=== PATIENT | male | born 1940 | race African-American/Black ===

== ENCOUNTER 2016-12-20 02:33 | Inpatient (IN) | payer OTHER ==
[2016-12-20] VITALS (8 sets, daily range): BP systolic 126–179
[~2016-12-20] VITALS: Ht 172.7 cm; Wt 82.6 kg
[2016-12-20] MEDS ORDERED: ONDANSETRON HCL 4 MG/2 ML VIAL IVP ONE (03:00)
[2016-12-20] MEDS ORDERED: NACL 0.9% 1,000 ML IV ONE ×2 (03:00→05:00)
[2016-12-20 03:43] LABS: RED BLOOD CELL COUNT(AUTO) 4.58 MIL/uL (4.2-6.2)
[2016-12-20 03:44] LABS: BASOPHILS # (AUTO) 0.2 K/uL (0.0-0.2); BASOPHILS % (AUTO) 2.7 % (0.0-2.0); EOSINOPHILS # (AUTO) 0.1 K/uL (0.0-0.4); HEMATOCRIT 42.7 % (36-54); LYMPHOCYTES # (AUTO) 3.7 K/uL (1.0-5.5); LYMPHOCYTES % (AUTO) 53.4 % (20.5-51.5); MEAN CORPUSCULAR HEMOGLOBIN 31 pg (27-31); MEAN CORPUSCULAR HGB CONC 33 % (32-36); MEAN CORPUSCULAR VOLUME 93 fL (79.0-98.0); MONOCYTES # (AUTO) 0.5 K/uL (0.0-1.0); MONOCYTES % (AUTO) 6.9 % (1.7-9.3); NEUTROPHILS # (AUTO) 2.5 K/uL (1.8-7.7); PLATELET COUNT (AUTO) 232 K/uL (130-430); RED CELL DISTRIBUTION WIDTH 12.9 % (9.0-15.0)
[2016-12-20 04:12] LABS: ALANINE AMINOTRANSFERASE 21 U/L (12-78); ALBUMIN 3.4 g/dL (3.4-4.8); ANION GAP 8 (5-15); ASPARTATE AMINOTRANSFERASE 36 U/L (10-37); CALCIUM 9.7 mg/dL (8.4-11.0); CHLORIDE 107 mmol/L (98-107); CREATININE 0.83 mg/dL (0.55-1.30); GLUCOSE 154 mg/dL (70-99); LIPASE 374 U/L (73-393); SODIUM SERUM 139 mmol/L (136-145); TOTAL BILIRUBIN 0.5 mg/dL (0.0-1.0); UREA NITROGEN, BLOOD 17 mg/dL (8-21)
[2016-12-20 04:15] LABS: POTASSIUM 6.3 mmol/L (3.5-5.1)
[2016-12-20] MEDS ORDERED: ALBUTEROL SULFATE 0.083% 2.5 MG/3 ML VIAL.NEB INH ONE (04:15)
[2016-12-20] MEDS ORDERED: CALCIUM GLUCONATE 1 GM in NS 100 ML IV ONE (04:15)
[2016-12-20] MEDS ORDERED: INSULIN REGULAR, HUMAN 10 UNITS/0.1 ML INJ IVP ONE (04:15)
[2016-12-20] MEDS ORDERED: SODIUM POLYSTYRENE SULFONATE 15 GM/60 ML UDBTL PO ONE (04:15)
[2016-12-20] MEDS ORDERED: DEXTROSE 50% JECT 50 ML DISP.SYRIN IVP ONE (04:15)
[2016-12-20] MEDS ORDERED: CALCIUM GLUCONATE 1 GM/10 ML VIAL ONE (04:34)
[2016-12-20 05:22] LABS: BILIRUBIN,URINE NEGATIVE (NEGATIVE); BLOOD, URINE 1+ (NEGATIVE); CLARITY/URINE CLEAR (CLEAR); COLOR,URINE YELLOW (YELLOW); GLUCOSE,URINE 2+ (NEGATIVE); KETONES,URINE NEGATIVE (NEGATIVE); LEUKOCYTE ESTERASE ,URINE NEGATIVE (NEGATIVE); NITRITE, URINE NEGATIVE (NEGATIVE); PROTEIN URINE NEGATIVE (NEGATIVE); UROBILINOGEN,URINE 0.2 (0.2-1.0)
[2016-12-20 05:26] LABS: BACTERIA,URINE FEW /HPF (None Seen); WBC,URINE 0-3 /HPF (0-3)
[2016-12-20] MEDS: ASPIRIN 81 MG TAB.CHEW PO SCH (09:25)
[2016-12-20] MEDS: 0.45% NACL 1,000 ML IV SCH ×2 (09:27→21:55)
[2016-12-20 09:29] LABS: BASOPHILS # (AUTO) 0.1 K/uL (0.0-0.2); BASOPHILS % (AUTO) 1.1 % (0.0-2.0); EOSINOPHILS % (AUTO) 0.7 % (0.0-4.0); HEMOGLOBIN 14.1 g/dL (14.0-18.0); LYMPHOCYTES % (AUTO) 42.8 % (20.5-51.5); MEAN CORPUSCULAR HEMOGLOBIN 31 pg (27-31); MEAN CORPUSCULAR HGB CONC 33 % (32-36); MEAN CORPUSCULAR VOLUME 95 fL (79.0-98.0); MONOCYTES # (AUTO) 0.4 K/uL (0.0-1.0); MONOCYTES % (AUTO) 5.3 % (1.7-9.3); NEUTROPHILS # (AUTO) 3.4 K/uL (1.8-7.7); NEUTROPHILS % (AUTO) 50.1 % (40.0-70.0); PLATELET COUNT (AUTO) 239 K/uL (130-430); RED BLOOD CELL COUNT(AUTO) 4.53 MIL/uL (4.2-6.2); RED CELL DISTRIBUTION WIDTH 12.3 % (9.0-15.0); WHITE BLOOD COUNT (AUTO) 6.9 K/uL (4.8-10.8)
[2016-12-20 09:43] LABS: ANION GAP 8 (5-15); CALCIUM 9.1 mg/dL (8.4-11.0); CHLORIDE 109 mmol/L (98-107); CREATININE 0.92 mg/dL (0.55-1.30); GLUCOSE 131 mg/dL (70-99); POTASSIUM 3.6 mmol/L (3.5-5.1); SODIUM SERUM 143 mmol/L (136-145); UREA NITROGEN, BLOOD 14 mg/dL (8-21)
[2016-12-20 09:48] LABS: ALANINE AMINOTRANSFERASE 23 U/L (12-78); ALBUMIN 3.6 g/dL (3.4-4.8); ASPARTATE AMINOTRANSFERASE 18 U/L (10-37); TOTAL BILIRUBIN 0.4 mg/dL (0.0-1.0)
[2016-12-21] MEDS: 0.45% NACL 1,000 ML IV SCH (00:07)
[2016-12-21 00:14] VITALS: BP_SYST 155
[2016-12-21 04:16] VITALS: BP_SYST 147
[2016-12-21 08:33] VITALS: BP_SYST 156
[2016-12-21] MEDS: ASPIRIN 81 MG TAB.CHEW PO SCH (08:33)
[2016-12-21 11:41] VITALS: BP_SYST 150
[2016-12-21] MEDS ORDERED: LIP20 PO (12:15)
[2016-12-21] MEDS ORDERED: ASA81 (12:15)
[2016-12-21 12:24] VITALS: BP_SYST 150
== END 2016-12-21 14:35 | disposition home or self-care (01) | DRG 641 ==
LOC: SED 02:33 → STU 05:08
PROVIDERS: ADMIT Internal Medicine Hospice and Palliative Medicine; ATTEND Internal Medicine Hospice and Palliative Medicine
DX: E87.5 Hyperkalemia (principal); N40.0 Benign prostatic hyperplasia without lower urinary tract symptoms; Z79.82 Long term (current) use of aspirin; Z79.899 Other long term (current) drug therapy; Z82.49 Family history of ischemic heart disease and other diseases of the circulatory system
CPT/HCPCS: 36415; 70450-TC; 71010; 80053; 81000-TC; 83690-TC; 84484; 85025; 93005; 93306; 94640; 96361; 96365; 96375; 99285; J0610; J1815; J2405; J7030

== ENCOUNTER 2018-09-24 23:54 | Emergency (ER) | payer OTHER ==
[~2018-09-24] VITALS: Ht 172.7 cm; Wt 84.8 kg
[~2018-09-24 23:54] MED LIST: ASA81; LIP20 PO
[2018-09-24 23:55] VITALS: BP_SYST 178
[2018-09-25] MEDS ORDERED: CYCLOBENZAPRINE HCL 10 MG TABLET (FLEXERIL) PO ONE (00:45)
[2018-09-25] MEDS ORDERED: cloNIDine HCL 0.1 MG TABLET PO ONE (00:45)
[2018-09-25] MEDS ORDERED: CYCLOBENZAPRINE HCL 10 MG TABLET (FLEXERIL) ONE (01:09)
[2018-09-25 01:32] VITALS: BP_SYST 155
== END 2018-09-25 01:32 | disposition home or self-care (01) ==
LOC: SED 23:54
DX: M43.6 Torticollis (principal); M54.2 Cervicalgia; I10 Essential (primary) hypertension
CPT/HCPCS: 99283